=== PATIENT | female | born 1955 | race Caucasian/White ===

== ENCOUNTER 2018-12-12 15:31 | Emergency (ER) | payer MEDICAID ==
[2018-12-12] MEDS: IBUPROFEN 600 MG TAB PO (17:59)
[2018-12-12] MEDS: ACETAMINOPHEN 325 MG TAB PO (17:59)
== END 2018-12-12 19:51 | disposition home or self-care (01) ==
LOC: FTE 15:31
DX: S52.501A Unspecified fracture of the lower end of right radius, initial encounter for closed fracture (principal); S52.601A Unspecified fracture of lower end of right ulna, initial encounter for closed fracture; W18.30XA Fall on same level, unspecified, initial encounter; Y92.9 Unspecified place or not applicable
CPT/HCPCS: 29125; 73090-RT; 73110-RT; 99283-25